=== PATIENT | male | born 1935 | race Two or more races ===

== ENCOUNTER 2018-01-18 08:32 | Outpatient (CLI) | payer OTHER ==
[~2018-01-18 08:32] MED LIST: ACTIGALL300 MG PO; PREDNISOLONE5 GM; PREVASTATIN; PROTONIX40 MG PO; SEPTRA DS TABLE1 TAB PO; ZETIA10 MG
== END 2018-01-18 09:18 | disposition home or self-care (01) ==
LOC: MRI 08:32
DX: M50.222 Other cervical disc displacement at C5-C6 level (principal); M47.892 Other spondylosis, cervical region; M19.90 Unspecified osteoarthritis, unspecified site; M54.10 Radiculopathy, site unspecified
CPT/HCPCS: 72141

== ENCOUNTER 2018-12-07 08:59 | Outpatient (CLI) | payer OTHER | END 2018-12-07 17:00 | disposition home or self-care (01) | LOC: MRI 08:59 | DX: M48.02 Spinal stenosis, cervical region (principal); M50.222 Other cervical disc displacement at C5-C6 level; M47.892 Other spondylosis, cervical region | CPT/HCPCS: 72141 ==

== ENCOUNTER → 2018-12-29 | Outpatient (CLI) | payer OTHER | END | disposition home or self-care (01) | LOC: NUCLEAR 12-28 14:00 | DX: M81.0 Age-related osteoporosis without current pathological fracture (principal) ==

== ENCOUNTER 2020-07-31 15:05 | Outpatient (CLI) | payer OTHER | END 2020-07-31 15:06 | disposition home or self-care (01) | LOC: PPH VACUNA 15:05 | PROVIDERS: ATTEND Emergency Medicine Pediatric Emergency Medicine | DX: Z23 Encounter for immunization (principal) ==

== ENCOUNTER 2020-08-22 08:02 | Outpatient (CLI) | payer OTHER | END 2020-08-22 15:00 | disposition home or self-care (01) | LOC: PPH VACUNA 08:02 | PROVIDERS: ATTEND Emergency Medicine Pediatric Emergency Medicine | DX: Z23 Encounter for immunization (principal) ==

== ENCOUNTER → 2020-12-06 14:13 | Outpatient (CLI) | payer OTHER | END | disposition home or self-care (01) | LOC: LAB 14:13 | PROVIDERS: ATTEND Specialist | DX: E03.8 Other specified hypothyroidism (principal); D51.0 Vitamin B12 deficiency anemia due to intrinsic factor deficiency; D68.8 Other specified coagulation defects; D64.89 Other specified anemias; E55.9 Vitamin D deficiency, unspecified ==

== ENCOUNTER 2020-12-07 08:35 | Outpatient (CLI) | payer OTHER | END 2020-12-07 08:54 | disposition home or self-care (01) | LOC: SONOGRAMA 08:35 | PROVIDERS: ATTEND Specialist | DX: E03.8 Other specified hypothyroidism (principal); E04.8 Other specified nontoxic goiter ==

== ENCOUNTER 2021-04-18 09:15 | Outpatient (CLI) | payer OTHER | END 2021-04-18 09:25 | disposition home or self-care (01) | LOC: PPH VACUNA 09:15 | PROVIDERS: ATTEND Emergency Medicine Pediatric Emergency Medicine | DX: Z23 Encounter for immunization (principal) ==

== ENCOUNTER 2021-11-04 08:00 | Outpatient (CLI) | payer OTHER | END 2021-11-04 08:30 | disposition home or self-care (01) | LOC: PPH VACUNA 08:00 | PROVIDERS: ATTEND Emergency Medicine Pediatric Emergency Medicine | DX: Z23 Encounter for immunization (principal) ==

== ENCOUNTER 2021-12-19 07:37 | Outpatient (CLI) | payer OTHER | END 2021-12-19 07:41 | disposition home or self-care (01) | LOC: RAD 07:37 | PROVIDERS: ATTEND Internal Medicine Cardiovascular Disease | DX: T14.8XXA Other injury of unspecified body region, initial encounter (principal) ==

== ENCOUNTER 2022-01-21 08:39 | Outpatient (CLI) | payer OTHER | END 2022-01-21 08:51 | disposition home or self-care (01) | LOC: TOM 08:39 | PROVIDERS: ATTEND Otolaryngology Otolaryngology/Facial Plastic Surgery | DX: J01.90 Acute sinusitis, unspecified (principal); H90.3 Sensorineural hearing loss, bilateral ==

== ENCOUNTER 2022-02-11 13:14 | Inpatient (IN) | payer OTHER ==
[~2022-02-11] VITALS: Ht 165.1 cm; Wt 63.5 kg
--- NOTE | 2022-02-11 13:51 | NUR ---
SE RECIBE PTE ALERTA Y ORIENTADO X3 CUAL REFIERE ESTAR ORINANDO POCO Y DE COLOR OSCURO HACE REYES SEMANA. REFERIDO POR DR.WILFREDO PERALTA. SE JESSICA S/V Y SE UBICA.
--- NOTE | 2022-02-11 14:44 | NUR ---
SE LE ORIENTA A PTE SOBRE TRATAMIENTO A SEGUIR, EL Y FAMILIAR REFIEREN ENTENDER. SE LE COLECTA MUESTRAS, SE CANALIZA Y SE ADMINISTRA MEDICAMENTO IRENE ORDEN MEDICA UTILIZANDO MEDIDAS ASEPTICAS. PENDIENTE CT IV
--- NOTE | 2022-02-11 16:13 | NUR ---
SE RECIBE PTE ALERTA Y ORIENTADO X3 EN BUTACA. PTE CANALIZADO AREA NILAY DE EDEMA Y DE ENROJECIMEINTO. PTE EN ESPERA DE RESULTADOS DE LABORATORIOS PARA RE EVALUACION MEDICA.
== END 2022-02-14 15:48 | disposition home or self-care (01) | DRG 442 ==
LOC: ER 13:14 → SURH 21:54
PROVIDERS: ADMIT Specialist; ATTEND Specialist
PROC: BF37ZZZ Magnetic Resonance Imaging (MRI) of Pancreas (ICD-10-PCS; principal; 2022-02-12)
DX: K71.0 Toxic liver disease with cholestasis (principal); B17.9 Acute viral hepatitis, unspecified; T36.0X5A Adverse effect of penicillins, initial encounter; T36.1X5A Adverse effect of cephalosporins and other beta-lactam antibiotics, initial encounter; E80.6 Other disorders of bilirubin metabolism; I13.10 Hypertensive heart and chronic kidney disease without heart failure, with stage 1 through stage 4 chronic kidney disease, or unspecified chronic kidney disease; I25.10 Atherosclerotic heart disease of native coronary artery without angina pectoris; N18.2 Chronic kidney disease, stage 2 (mild); E78.5 Hyperlipidemia, unspecified; E03.9 Hypothyroidism, unspecified; D53.9 Nutritional anemia, unspecified